=== PATIENT | female | born 1995 | race Two or more races ===

== ENCOUNTER 2025-03-13 17:47 | Emergency (ER) | payer OTHER ==
[~2025-03-13] VITALS: Ht 160 cm; Wt 124.3 kg
[2025-03-13] MEDS ORDERED: ONDANSETRON HCL 2 MG/ML VIAL IM STA (19:57)
[2025-03-13] MEDS ORDERED: ACETAMINOPHEN 500 MG GEL..CAP PO STA (20:00)
[2025-03-13 21:12] LABS: BASO % 0.2 % (0.1-1.2); EOS # 0.00 (0.04-0.54); EOS % 0.0 % (0.7-7.0); LYMPH # 1.39 (1.18-3.74); LYMPH % 7.4 % (19.3-53.1); MEAN PLATELET VOLUME 9.70 fl (9.4-12.4); MONO # 0.99 (0.24-0.82); MONO % 5.3 % (4.7-12.5); NEUT # 16.15 (1.56-6.13); NEUT % 86.5 % (34.0-71.1); RED CELL DISTRIBUTION WIDTH 12.2 % (11.6-14.4)
[2025-03-13 21:48] LABS: COVID-19 AG NEGATIVE (NEGATIVE)
[2025-03-13] MEDS ORDERED: 0.9 % SODIUM CHLORIDE 500 ML IV ONE (22:15)
[2025-03-14] MEDS ORDERED: CEFTRIAXONE SODIUM 2,000 MG VIAL IV STA (00:05)
[2025-03-14 00:30] LABS: BASO % 0.3 % (0.1-1.2); EOS # 0.00 (0.04-0.54); EOS % 0.0 % (0.7-7.0); LYMPH # 1.36 (1.18-3.74); LYMPH % 8.7 % (19.3-53.1); MEAN PLATELET VOLUME 9.80 fl (9.4-12.4); MONO # 0.84 (0.24-0.82); MONO % 5.3 % (4.7-12.5); NEUT # 13.39 (1.56-6.13); NEUT % 85.2 % (34.0-71.1); RED CELL DISTRIBUTION WIDTH 12.3 % (11.6-14.4)
[2025-03-14 00:58] LABS: BUN CREA RATIO 9.0 (7.0-25.0); CREATININE SERUM 0.74 mg/dL (0.55-1.02); GFR 91.54; GLUCOSE FASTING 110.0 mg/dL (65-100); OSMOLALITY SERUM 282.0 MOSM/KG (275-295)
[2025-03-14 08:19] LABS: URINE APPEARANCE Cloudy; URINE BILIRRUBIN Negative (NEGATIVE); URINE BLOOD Small; URINE COLOR Yellow; URINE GLUCOSE Negative (NEGATIVE); URINE KETONE Trace (NEGATIVE); URINE LEUKOCYTE Moderate; URINE NITRATE Negative; URINE PROTEIN Trace (NEGATIVE); URINE UROBILINOGEN 0.2 E.U./dl
[2025-03-14 08:24] LABS: URINE BACTERIA 2701.0 uL (0.0-1933); URINE EPITHELIAL CELLS 40.3 uL (0.0-38.8); URINE RBC 13.7 uL (0.0-20.8); URINE WBC 970.1 uL (0.0-23.2)
[2025-03-14 08:37] LABS: URINE CAST 0.00 uL (0.0-1.40)
[2025-03-14] MEDS ORDERED: METRONIDAZOLE500 MG PO (08:40)
[2025-03-14] MEDS ORDERED: PROBIOTIC1 EAC2 PO (08:40)
[2025-03-14] MEDS ORDERED: PEPCID AC20 MG PO (08:40)
[2025-03-14] MEDS ORDERED: CIPRO500 MG PO (08:40)
[2025-03-14] MEDS ORDERED: ZOFRAN8 MG PO (08:40)
== END 2025-03-14 08:51 | disposition home or self-care (01) ==
LOC: ER 17:47
PROVIDERS: Emergency Medicine
DX: B34.9 Viral infection, unspecified (principal); K52.89 Other specified noninfective gastroenteritis and colitis; Z20.822 Contact with and (suspected) exposure to COVID-19; R16.0 Hepatomegaly, not elsewhere classified